=== PATIENT | female | born 1970 | race Caucasian/White ===

== ENCOUNTER 2016-07-20 15:52 | Emergency (ER) | payer BC ==
[~2016-07-20] VITALS: Ht 177.8 cm; Wt 113.4 kg
[~2016-07-20 15:52] MED LIST: ADIPEX37.5 MG PO; HYDROCODONE BIT1 T11 PO; MOTRIN800 MG PO; NORFLEX100 MG PO; PROZAC20 MG PO; QVAR40 MCG INH; SINGULAIR10 MG PO; VENTOLIN H0.09 MG/AC INH
== END 2016-07-20 17:30 | disposition home or self-care (01) ==
LOC: ED 15:52
DX: S93.401A Sprain of unspecified ligament of right ankle, initial encounter (principal); X58.XXXA Exposure to other specified factors, initial encounter; Y93.89 Activity, other specified; Y92.9 Unspecified place or not applicable; Y99.9 Unspecified external cause status

== ENCOUNTER → 2017-07-29 | Outpatient (CLI) | payer BC | END | disposition home or self-care (01) | LOC: US 10:30 → EDSTATUS 10:30 → US 10:40 | DX: N32.89 Other specified disorders of bladder (principal) ==